=== PATIENT | male | born 1995 | race Caucasian/White ===

== ENCOUNTER 2021-03-18 13:24 | Emergency (ER) | payer OTHER ==
[2021-03-18 13:34] VITALS: PULSE 82; BMI 36.5
[2021-03-18] MEDS ORDERED: LACTATED RINGERS SOLUTION 1000 ML INFUS.BAG IV ONE (14:40)
[2021-03-18 14:49] LABS: BASO % 0.2 % (0-2.0); EOS % 1.9 % (0-4.5); HEMATOCRIT 43.4 % (35.4-49); HEMOGLOBIN 14.3 GM/dL (11.7-16.9); MCH 26.1 pg (25.7-33.7); MCHC 32.9 g/dl (32.0-35.9); MEAN CELL VOLUME 79.4 fl (80-96); MEAN PLT VOLUME 8.4 fl (7.5-11.1); MONO % 6.2 % (3.8-10.2); NEUT % 76.7 % (42.8-82.8); PLATELET COUNT 255 10^3/uL (134-434); RBC 5.47 M/mm3 (4.00-5.60); RDW 14.7 % (11.9-15.9)
[2021-03-18 15:07] LABS: ALBUMIN 3.9 g/dl (3.4-5.0); BLOOD UREA NITROGEN 11.9 mg/dL (7-18); CALCIUM 9.5 mg/dL (8.5-10.1)
[2021-03-18 15:10] LABS: CREATININE 0.8 mg/dL (0.55-1.3)
[2021-03-18 15:12] LABS: TOT PROT 8.2 g/dl (6.4-8.2)
[2021-03-18 15:18] LABS: BILIRUBIN,TOTAL 0.3 mg/dL (0.2-1)
[2021-03-18 16:40] VITALS: BP 136/72; TEMP 98.5
== END 2021-03-18 16:40 | disposition home or self-care (01) ==
LOC: JER 13:24
DX: A08.4 Viral intestinal infection, unspecified (principal)
CPT/HCPCS: 36415; 80053; 83690; 85025; 99284-25; C9803; U0003; U0005